=== PATIENT | female | born 1945 | race Caucasian/White ===

== ENCOUNTER → 2017-02-04 | Outpatient (CLI) | payer OTHER ==
[2017-02-04 08:40] LABS: Basophils # (auto) 0 uL; Basophils % (auto) 0.2 % (0.0-2.0); CONDITION Y; Eosinophils # (auto) 0.1 uL; Eosinophils % (auto) 1.5 % (0.0-7.0); Hematocrit 42.9 % (36.0-46.0); Hemoglobin 14.2 g/dL (12.2-16.2); Lymphocytes # (auto) 2.2 uL; Lymphocytes % (auto) 30.3 % (10.0-50.0); Mean Corpuscular Hgb Conc. 33.2 g/dL (32.0-36.0); Mean Corpuscular Volume 99.4 fL (80.0-100.0); Mean Platelet Volume 8.5 fL (7.4-10.4); Monocytes # (auto) 0.7 uL; Monocytes % (auto) 9.2 % (0.0-12.0); Neutrophils # (auto) 4.2 uL; Neutrophils % (auto) 58.8 % (37.0-80.0); Platelet Count (auto) 335 10^3/uL (140-450); Red Cell Distribution Width 13.7 % (11.6-16.0); White Blood Cell 7.1 10^3/uL (4.4-10.8)
[2017-02-04 08:46] LABS: Urine Bilirubin Negative (Negative); Urine Blood Negative /uL (Negative); Urine Color Yellow (Yellow); Urine Glucose Normal (Normal); Urine Ketone Negative (Negative); Urine Mucus FEW (None Seen); Urine Nitrite Negative (Negative); Urine RBC 4 /hpf (0 - 4); Urine Squamous Epithelial Cell FEW /hpf (<5); Urine Urobilinogen Normal (Negative); Urine pH 5.5 (5.0-8.0)
[2017-02-04 09:05] LABS: BUN/Creatinine Ratio 14.9; Bilirubin, Total 0.5 mg/dL (0.2-1.0); Calcium 9.4 mg/dL (8.5-10.1); Potassium 4.5 mmol/L (3.5-5.1); Total Protein 7.3 g/dL (6.4-8.2)
== END | disposition home or self-care (01) ==
LOC: LAB 08:25
PROVIDERS: ATTEND Internal Medicine
DX: Z00.00 Encounter for general adult medical examination without abnormal findings (principal); I10 Essential (primary) hypertension; E78.2 Mixed hyperlipidemia; E55.9 Vitamin D deficiency, unspecified
CPT/HCPCS: 36415; 80053; 80061; 81001; 82306; 84443; 85025

== ENCOUNTER → 2017-05-22 | Outpatient (CLI) | payer OTHER | END | disposition home or self-care (01) | LOC: LAB 10:44 | PROVIDERS: ATTEND Psychiatry & Neurology Neurology | DX: M54.2 Cervicalgia (principal); M54.5 Low back pain | CPT/HCPCS: 80307 ==

== ENCOUNTER → 2017-07-30 | Outpatient (CLI) | payer OTHER | END | disposition home or self-care (01) | LOC: LAB 10:08 | PROVIDERS: ATTEND Internal Medicine Gastroenterology | DX: Z86.19 Personal history of other infectious and parasitic diseases (principal) | CPT/HCPCS: 87522 ==

== ENCOUNTER → 2017-09-20 | Outpatient (CLI) | payer OTHER ==
[2017-09-20 09:44] LABS: Basophils # (auto) 0 uL; Basophils % (auto) 0.7 % (0.0-2.0); Eosinophils # (auto) 0.2 uL; Eosinophils % (auto) 2.6 % (0.0-7.0); Hematocrit 43.9 % (36.0-46.0); Hemoglobin 14.7 g/dL (12.2-16.2); Lymphocytes # (auto) 2.3 uL; Lymphocytes % (auto) 32.8 % (10.0-50.0); Mean Corpuscular Hgb Conc. 33.4 g/dL (32.0-36.0); Mean Corpuscular Volume 98.8 fL (80.0-100.0); Monocytes % (auto) 14.5 % (0.0-12.0); Neutrophils # (auto) 3.5 uL; Neutrophils % (auto) 49.4 % (37.0-80.0); Nucleated Red Blood Cells % 0.1 %; Platelet Count (auto) 353 10^3/uL (140-450); Red Blood Cells 4.45 10^6/uL (4.0-5.20); Red Cell Distribution Width 13.4 % (11.8-14.3)
[2017-09-20 10:09] LABS: Folate (Folic Acid) 19.29 ng/mL (5.38-24)
[2017-09-20 10:11] LABS: Urine Bacteria NONE SEEN /hpf (None Seen); Urine Blood Negative /uL (Negative); Urine Mucus FEW (None Seen); Urine Specific Gravity 1.021 (1.001-1.035); Urine WBC 1 /hpf (0 - 5)
[2017-09-20 10:16] LABS: Albumin 4.1 g/dL (3.4-5.0); BUN/Creatinine Ratio 20.3; Bilirubin, Total 0.5 mg/dL (0.2-1.0); Calcium 9.4 mg/dL (8.5-10.1); Potassium 4.2 mmol/L (3.5-5.1)
== END | disposition home or self-care (01) ==
LOC: LAB 08:22
PROVIDERS: ATTEND Nurse Practitioner
DX: M06.9 Rheumatoid arthritis, unspecified (principal); E78.5 Hyperlipidemia, unspecified
CPT/HCPCS: 36415; 80053; 80061; 81001; 82306; 82607; 82746; 84443; 85025

== ENCOUNTER → 2018-06-23 | Outpatient (CLI) | payer OTHER ==
[2018-06-23 12:27] LABS: Basophils # (auto) 0.1 uL; Basophils % (auto) 0.6 % (0.0-2.0); Eosinophils # (auto) 0.1 uL; Eosinophils % (auto) 1.4 % (0.0-7.0); Hematocrit 44.4 % (36.0-46.0); Hemoglobin 14.1 g/dL (12.2-16.2); Lymphocytes # (auto) 2.1 uL; Lymphocytes % (auto) 19.7 % (10.0-50.0); Mean Corpuscular Hemoglobin 30.8 pg (28.0-32.0); Mean Corpuscular Hgb Conc. 31.8 g/dL (32.0-36.0); Mean Corpuscular Volume 96.9 fL (80.0-100.0); Monocytes # (auto) 1.2 uL; Monocytes % (auto) 11.4 % (0.0-12.0); Neutrophils # (auto) 7.1 uL; Neutrophils % (auto) 66.9 % (37.0-80.0); Platelet Count (auto) 448 10^3/uL (140-450); Red Blood Cells 4.58 10^6/uL (4.0-5.20); Red Cell Distribution Width 14.1 % (11.8-14.3); White Blood Cell 10.6 10^3/uL (4.4-10.8)
[2018-06-23 12:50] LABS: Urine Bacteria NONE SEEN /hpf (None Seen); Urine Blood Negative /uL (Negative); Urine Specific Gravity 1.024 (1.001-1.035); Urine WBC 13 /hpf (0 - 5)
[2018-06-23 13:16] LABS: Potassium 3.5 mmol/L (3.5-5.1)
[2018-06-23 13:27] LABS: Hepatitis B Surface Antibody Negative
[2018-06-23 13:33] LABS: BUN/Creatinine Ratio 14.5; Bilirubin, Total 0.5 mg/dL (0.2-1.0); CRP High Sensitivity 0.11 mg/dL (< 0.3); Calcium 9.3 mg/dL (8.5-10.1); Total Protein 8.1 g/dL (6.4-8.2)
[2018-06-23 13:37] LABS: Protein, Urine 23.4 mg/dL (0.0-11.9)
[2018-06-23 14:06] LABS: Hepatitis A Total Antibody Positive
[2018-06-23 14:17] LABS: Hepatitis B Surface Antigen Negative (Negative)
[2018-06-23 14:19] LABS: Hepatitis B Core Total AB Positive
[2018-06-23 14:20] LABS: Hepatitis C Antibody Positive (Negative)
== END | disposition home or self-care (01) ==
LOC: LAB 09:48
PROVIDERS: ATTEND Internal Medicine
DX: Z11.59 Encounter for screening for other viral diseases (principal); I10 Essential (primary) hypertension; D64.9 Anemia, unspecified; E55.9 Vitamin D deficiency, unspecified; M32.10 Systemic lupus erythematosus, organ or system involvement unspecified; M45.0 Ankylosing spondylitis of multiple sites in spine; M35.09 Sjogren syndrome with other organ involvement; Z72.89 Other problems related to lifestyle; Z79.899 Other long term (current) drug therapy
CPT/HCPCS: 36415; 80053; 81001; 82306; 82570; 84156; 85025; 85652; 86141; 86200; 86235; 86704; 86706; 86708; 86803; 86812; 87340; 87517

== ENCOUNTER → 2018-08-14 | Outpatient (CLI) | payer OTHER ==
[2018-08-14 12:07] LABS: Basophils # (auto) 0.1 uL; Basophils % (auto) 0.8 % (0.0-2.0); Eosinophils # (auto) 0.2 uL; Eosinophils % (auto) 2.9 % (0.0-7.0); Hematocrit 41.4 % (36.0-46.0); Hemoglobin 13.9 g/dL (12.2-16.2); Lymphocytes # (auto) 2.3 uL; Lymphocytes % (auto) 35.1 % (10.0-50.0); Mean Corpuscular Hemoglobin 32.8 pg (28.0-32.0); Mean Corpuscular Hgb Conc. 33.5 g/dL (32.0-36.0); Mean Corpuscular Volume 97.8 fL (80.0-100.0); Monocytes # (auto) 0.9 uL; Monocytes % (auto) 13.8 % (0.0-12.0); Neutrophils # (auto) 3.1 uL; Neutrophils % (auto) 47.4 % (37.0-80.0); Nucleated Red Blood Cells % 0.1 %; Platelet Count (auto) 330 10^3/uL (140-450); Red Blood Cells 4.23 10^6/uL (4.0-5.20); Red Cell Distribution Width 14.6 % (11.8-14.3); White Blood Cell 6.5 10^3/uL (4.4-10.8)
== END | disposition home or self-care (01) ==
LOC: LAB 11:23
PROVIDERS: ATTEND Internal Medicine
DX: M06.9 Rheumatoid arthritis, unspecified (principal); B19.20 Unspecified viral hepatitis C without hepatic coma; Z92.89 Personal history of other medical treatment
CPT/HCPCS: 36415; 85025; 86431; 87522

== ENCOUNTER 2018-10-27 12:39 | Emergency (ER) | payer OTHER, MEDICAID ==
[~2018-10-27] VITALS: Ht 154.9 cm; Wt 59.0 kg
[2018-10-27 15:40] VITALS: BP 134/74
== END 2018-10-27 15:46 | disposition home or self-care (01) ==
LOC: ER 12:39
DX: S16.1XXA Strain of muscle, fascia and tendon at neck level, initial encounter (principal); S80.01XA Contusion of right knee, initial encounter; S09.90XA Unspecified injury of head, initial encounter; M06.9 Rheumatoid arthritis, unspecified; Z90.49 Acquired absence of other specified parts of digestive tract; Z90.710 Acquired absence of both cervix and uterus; Z90.89 Acquired absence of other organs; Z88.2 Allergy status to sulfonamides; W01.0XXA Fall on same level from slipping, tripping and stumbling without subsequent striking against object, initial encounter; Y93.89 Activity, other specified; Y99.8 Other external cause status; Y92.238 Other place in hospital as the place of occurrence of the external cause
CPT/HCPCS: 70450; 72125; 72192; 73700

== ENCOUNTER → 2018-11-11 | Outpatient (CLI) | payer OTHER, MEDICAID ==
[2018-11-11 10:36] LABS: Alcohol, Urine < 3.0 mg/dL (0-5); Amphetamine Screen, Urine NEGATIVE (NEGATIVE); Barbiturate Scree,Urine NEGATIVE (NEGATIVE); Benzodiazephine Screen, Urine POSITIVE (NEGATIVE); Cannabinoid Screen, Urine NEGATIVE (NEGATIVE); Cocaine Screen, Urine NEGATIVE (NEGATIVE); Opiate Scree,Urine POSITIVE (NEGATIVE); Phencyclidine Screen, Urine NEGATIVE (NEGATIVE)
== END | disposition home or self-care (01) ==
LOC: LAB 09:39
PROVIDERS: ATTEND Psychiatry & Neurology Neurology
DX: F41.9 Anxiety disorder, unspecified (principal); M54.5 Low back pain; M54.2 Cervicalgia
CPT/HCPCS: 80307

== ENCOUNTER → 2018-11-24 | Outpatient (CLI) | payer OTHER, MEDICAID ==
[2018-11-24 11:06] LABS: Basophils # (auto) 0 uL; Basophils % (auto) 0.5 % (0.0-2.0); Eosinophils # (auto) 0.1 uL; Eosinophils % (auto) 1.8 % (0.0-7.0); Hematocrit 38.2 % (36.0-46.0); Hemoglobin 12.7 g/dL (12.2-16.2); Lymphocytes # (auto) 2.1 uL; Lymphocytes % (auto) 33.8 % (10.0-50.0); Mean Corpuscular Hemoglobin 32.4 pg (28.0-32.0); Mean Corpuscular Hgb Conc. 33.1 g/dL (32.0-36.0); Mean Corpuscular Volume 97.7 fL (80.0-100.0); Monocytes # (auto) 0.6 uL; Monocytes % (auto) 9.2 % (0.0-12.0); Neutrophils # (auto) 3.4 uL; Neutrophils % (auto) 54.7 % (37.0-80.0); Nucleated Red Blood Cells % 0.1 %; Platelet Count (auto) 292 10^3/uL (140-450); Red Blood Cells 3.91 10^6/uL (4.0-5.20); White Blood Cell 6.2 10^3/uL (4.4-10.8)
[2018-11-24 11:07] LABS: Basophils # (auto) 0.1 uL; Basophils % (auto) 0.8 % (0.0-2.0); Eosinophils # (auto) 0.1 uL; Eosinophils % (auto) 1.7 % (0.0-7.0); Hematocrit 38.9 % (36.0-46.0); Hemoglobin 12.8 g/dL (12.2-16.2); Mean Corpuscular Hemoglobin 32.2 pg (28.0-32.0); Mean Corpuscular Hgb Conc. 32.8 g/dL (32.0-36.0); Mean Corpuscular Volume 98.3 fL (80.0-100.0); Monocytes # (auto) 0.6 uL; Monocytes % (auto) 9.8 % (0.0-12.0); Neutrophils # (auto) 3.4 uL; Neutrophils % (auto) 54.7 % (37.0-80.0); Nucleated Red Blood Cells % 0.1 %; Platelet Count (auto) 301 10^3/uL (140-450); Red Blood Cells 3.96 10^6/uL (4.0-5.20); Red Cell Distribution Width 13.2 % (11.8-14.3); White Blood Cell 6.2 10^3/uL (4.4-10.8)
[2018-11-24 11:22] LABS: INR 0.98 (0.9-1.15); Partial Thromboplastin Time 25.8 sec (23.78-33.04); Prothrombin Time 10.5 sec (9.27-12.13)
[2018-11-24 11:28] LABS: Urine Bacteria NONE SEEN /hpf (None Seen); Urine Blood Negative /uL (Negative); Urine Specific Gravity 1.015 (1.001-1.035); Urine Specific Gravity 1.016 (1.001-1.035); Urine WBC 3 /hpf (0 - 5); Urine WBC 5 /hpf (0 - 5)
[2018-11-24 11:39] LABS: Potassium 3.9 mmol/L (3.5-5.1)
[2018-11-24 11:41] LABS: Potassium 3.9 mmol/L (3.5-5.1)
[2018-11-24 11:46] LABS: Folate (Folic Acid) > 24.00 ng/mL (5.38-24)
[2018-11-24 11:47] LABS: Hepatitis B Surface Antibody Negative
[2018-11-24 11:54] LABS: Albumin 3.6 g/dL (3.4-5.0); BUN/Creatinine Ratio 8.3; Bilirubin, Total 0.4 mg/dL (0.2-1.0); Calcium 8.9 mg/dL (8.5-10.1); Total Protein 6.6 g/dL (6.4-8.2)
[2018-11-24 12:03] LABS: Albumin 3.6 g/dL (3.4-5.0); BUN/Creatinine Ratio 8.6; Bilirubin, Total 0.4 mg/dL (0.2-1.0); Calcium 9.1 mg/dL (8.5-10.1); Total Protein 6.6 g/dL (6.4-8.2); Uric Acid 4.5 mg/dL (2.6-6.0)
[2018-11-24 12:25] LABS: Hepatitis A Total Antibody Positive
[2018-11-24 13:11] LABS: Hepatitis B Surface Antigen Negative (Negative)
[2018-11-24 13:16] LABS: Hepatitis B Core Total AB Positive; Hepatitis C Antibody Positive (Negative)
== END | disposition home or self-care (01) ==
LOC: LAB 09:23
PROVIDERS: ATTEND Nurse Practitioner
DX: Z01.818 Encounter for other preprocedural examination (principal)
CPT/HCPCS: 36415; 80053; 80061; 81001; 82306; 82607; 82746; 83036; 84443; 84550; 85025; 85610; 85730; 86704; 86706; 86708; 86803; 87340

== ENCOUNTER → 2018-12-19 | Outpatient (CLI) | payer OTHER, MEDICAID | END | disposition home or self-care (01) | LOC: LAB 11:06 | PROVIDERS: ATTEND Internal Medicine Gastroenterology | DX: Z86.19 Personal history of other infectious and parasitic diseases (principal) | CPT/HCPCS: 87522 ==

== ENCOUNTER → 2019-01-29 | Outpatient (CLI) | payer OTHER, MEDICAID | END | disposition home or self-care (01) | LOC: LAB 11:24 | PROVIDERS: ATTEND Nurse Practitioner | DX: Z12.11 Encounter for screening for malignant neoplasm of colon (principal) | CPT/HCPCS: 82270 ==

== ENCOUNTER → 2019-04-23 | Outpatient (CLI) | payer OTHER, MEDICAID ==
[2019-04-23 11:44] LABS: Basophils # (auto) 0.1 uL; Basophils % (auto) 1.3 % (0.0-2.0); Eosinophils # (auto) 0.2 uL; Eosinophils % (auto) 3.7 % (0.0-7.0); Hematocrit 37.3 % (36.0-46.0); Hemoglobin 12.3 g/dL (12.2-16.2); Lymphocytes # (auto) 2.5 uL; Lymphocytes % (auto) 41.3 % (10.0-50.0); Mean Corpuscular Hemoglobin 32.2 pg (28.0-32.0); Mean Corpuscular Hgb Conc. 33.1 g/dL (32.0-36.0); Mean Corpuscular Volume 97.4 fL (80.0-100.0); Monocytes # (auto) 0.8 uL; Monocytes % (auto) 13.8 % (0.0-12.0); Neutrophils # (auto) 2.4 uL; Neutrophils % (auto) 39.9 % (37.0-80.0); Nucleated Red Blood Cells % 0.1 %; Platelet Count (auto) 275 10^3/uL (140-450); Red Blood Cells 3.83 10^6/uL (4.0-5.20); Red Cell Distribution Width 14.5 % (11.8-14.3)
[2019-04-23 11:55] LABS: Urine Blood Negative /uL (Negative); Urine Specific Gravity 1.023 (1.001-1.035)
[2019-04-23 12:09] LABS: INR 0.95 (0.9-1.15); Partial Thromboplastin Time 26.4 sec (23.64-32.05)
[2019-04-23 12:17] LABS: Potassium 4.6 mmol/L (3.5-5.1)
[2019-04-23 12:37] LABS: Albumin 3.4 g/dL (3.4-5.0); BUN/Creatinine Ratio 13.9; Calcium 8.9 mg/dL (8.5-10.1)
[2019-04-23 12:39] LABS: Bilirubin, Total 0.3 mg/dL (0.2-1.0); Total Protein 6.3 g/dL (6.4-8.2)
== END | disposition home or self-care (01) ==
LOC: LAB 11:08
PROVIDERS: ATTEND Nurse Practitioner
DX: Z01.818 Encounter for other preprocedural examination (principal)
CPT/HCPCS: 36415; 80053; 81003; 85025; 85610; 85730

== ENCOUNTER 2019-05-06 11:55 | Day surgery (SDC) | payer OTHER, MEDICAID ==
[2019-05-04 12:21] LABS: Basophils # (auto) 0.1 uL; Basophils % (auto) 0.8 % (0.0-2.0); Eosinophils # (auto) 0.3 uL; Eosinophils % (auto) 4.3 % (0.0-7.0); Hematocrit 41.3 % (36.0-46.0); Hemoglobin 13.6 g/dL (12.2-16.2); INR 1.01 (0.9-1.15); Lymphocytes # (auto) 2.6 uL; Lymphocytes % (auto) 42.3 % (10.0-50.0); Mean Corpuscular Hemoglobin 32.2 pg (28.0-32.0); Mean Corpuscular Hgb Conc. 32.9 g/dL (32.0-36.0); Mean Corpuscular Volume 97.9 fL (80.0-100.0); Monocytes # (auto) 0.5 uL; Monocytes % (auto) 8.8 % (0.0-12.0); Neutrophils # (auto) 2.6 uL; Neutrophils % (auto) 43.8 % (37.0-80.0); Nucleated Red Blood Cells % 0.1 %; Partial Thromboplastin Time 25.4 sec (23.64-32.05); Platelet Count (auto) 287 10^3/uL (140-450); Red Blood Cells 4.22 10^6/uL (4.0-5.20); Red Cell Distribution Width 14.3 % (11.8-14.3)
[2019-05-04 12:28] LABS: Urine Bacteria NONE SEEN /hpf (None Seen); Urine Blood Negative /uL (Negative); Urine Hyaline Cast FEW /lpf (0 - 2); Urine Mucus FEW (None Seen); Urine WBC 14 /hpf (0 - 5)
[2019-05-04 12:41] LABS: Albumin 3.9 g/dL (3.4-5.0); Calcium 9.3 mg/dL (8.5-10.1); Potassium 4.8 mmol/L (3.5-5.1)
[2019-05-04 12:43] LABS: BUN/Creatinine Ratio 13.4
[2019-05-04 12:45] LABS: Bilirubin, Total 0.6 mg/dL (0.2-1.0); Total Protein 6.8 g/dL (6.4-8.2)
[~2019-05-06] VITALS: Ht 157.5 cm; Wt 54.4 kg
[~2019-05-06 11:55] MED LIST: ALPR0.5T PO; HYDR-531 PO; HYDR200T36 PO; LATA0.0015 EACHEYE; LEVO50TA7 PO; TIMO0.5S66 EACHEYE; TRAZ100T2 PO
[2019-05-06] MEDS ORDERED: BUPIVACAINE 0.5% P/F INJ 10 ML VIAL ONE (12:33)
[2019-05-06] MEDS ORDERED: LIDOCAINE 1% HCL (LOCAL ANESTH.) INJ 20ML MDV ONE (12:33)
[2019-05-06] MEDS ORDERED: MIDAZOLAM HCL 1MG/1ML-2 ML VIAL ONE (13:09)
[2019-05-06] MEDS ORDERED: ONDANSETRON HCL 4 MG/2 ML VIAL ONE (13:09)
[2019-05-06] MEDS ORDERED: PROPOFOL 10 MG/ML 20 ML IV ONE (13:09)
[2019-05-06] MEDS ORDERED: fentaNYL CITRATE 100 MCG/2 ML VL ONE (13:09)
[2019-05-06] MEDS ORDERED: SODIUM CHLORIDE LOCK 10 ML ONE (13:09)
[2019-05-06] MEDS ORDERED: ceFAZolin 1GM/50ML 50 ML IV ONE (13:13)
[2019-05-06] MEDS ORDERED: METOCLOPRAMIDE HCL 5MG/ml INJ 2ml VIAL IV PRN (13:15)
[2019-05-06] MEDS ORDERED: KETOROLAC TROMETH 30 MG/ML 1ML VIAL IV ONE (13:15)
[2019-05-06] MEDS ORDERED: HYDROmorphone HCL 2 MG/ML VL IV PRN (13:15)
[2019-05-06] MEDS ORDERED: fentaNYL CITRATE 100 MCG/2 ML VL IV PRN (13:15)
[2019-05-06 15:01] VITALS: BP 100/52
== END 2019-05-06 15:31 | disposition home or self-care (01) ==
LOC: SUR 11:55
PROVIDERS: ATTEND Podiatrist
DX: M67.471 Ganglion, right ankle and foot (principal); M06.9 Rheumatoid arthritis, unspecified; B19.20 Unspecified viral hepatitis C without hepatic coma; E03.9 Hypothyroidism, unspecified; F32.9 Major depressive disorder, single episode, unspecified; N18.2 Chronic kidney disease, stage 2 (mild); Z78.0 Asymptomatic menopausal state; Z98.890 Other specified postprocedural states; Z90.49 Acquired absence of other specified parts of digestive tract; Z88.8 Allergy status to other drugs, medicaments and biological substances; Z88.2 Allergy status to sulfonamides; Z88.1 Allergy status to other antibiotic agents; Z88.5 Allergy status to narcotic agent
CPT/HCPCS: 28090; 36415; 80053; 81001; 85025; 85610; 85730; 88305; 88312; 88313; 88342; J0690; J2001; J2250; J2405; J2704; J3010; J3490

== ENCOUNTER → 2019-05-14 | Outpatient (CLI) | payer OTHER, MEDICAID ==
[2019-05-14 10:15] LABS: Amphetamine Screen, Urine NEGATIVE (NEGATIVE); Barbiturate Scree,Urine NEGATIVE (NEGATIVE); Benzodiazephine Screen, Urine POSITIVE (NEGATIVE); Cannabinoid Screen, Urine POSITIVE (NEGATIVE); Cocaine Screen, Urine NEGATIVE (NEGATIVE); Phencyclidine Screen, Urine NEGATIVE (NEGATIVE)
[2019-05-14 10:22] LABS: Opiate Scree,Urine POSITIVE (NEGATIVE)
== END | disposition home or self-care (01) ==
LOC: LAB 09:40
PROVIDERS: ATTEND Psychiatry & Neurology Neurology
DX: M54.5 Low back pain (principal)
CPT/HCPCS: 80307

== ENCOUNTER → 2019-09-04 | Outpatient (CLI) | payer OTHER, MEDICAID ==
[~2019-09-04] MED LIST changes: -TRAZ100T2 PO; +TRAZ100T3 PO
[2019-09-04 10:37] LABS: Basophils # (auto) 0 uL; Basophils % (auto) 0.3 % (0.0-2.0); Eosinophils # (auto) 0 uL; Eosinophils % (auto) 0.2 % (0.0-7.0); Hematocrit 42.8 % (36.0-46.0); Hemoglobin 14.6 g/dL (12.2-16.2); Lymphocytes # (auto) 1.8 uL; Lymphocytes % (auto) 18.6 % (10.0-50.0); Mean Corpuscular Hemoglobin 33.2 pg (28.0-32.0); Mean Corpuscular Volume 97.6 fL (80.0-100.0); Monocytes # (auto) 1.1 uL; Neutrophils # (auto) 6.7 uL; Neutrophils % (auto) 69.9 % (37.0-80.0); Platelet Count (auto) 313 10^3/uL (140-450); Red Blood Cells 4.39 10^6/uL (4.0-5.20); Red Cell Distribution Width 13.9 % (11.8-14.3); White Blood Cell 9.6 10^3/uL (4.4-10.8)
[2019-09-04 10:44] LABS: Urine Bacteria NONE SEEN /hpf (None Seen); Urine Blood Negative /uL (Negative); Urine Mucus MODERATE (None Seen); Urine Specific Gravity 1.027 (1.001-1.035); Urine WBC 6 /hpf (0 - 5)
[2019-09-04 10:59] LABS: Albumin 3.8 g/dL (3.4-5.0); Calcium 9.7 mg/dL (8.5-10.1); Potassium 4.4 mmol/L (3.5-5.1)
[2019-09-04 11:05] LABS: BUN/Creatinine Ratio 19.2; Bilirubin, Total 0.6 mg/dL (0.2-1.0); Total Protein 7.6 g/dL (6.4-8.2)
[2019-09-04 11:09] LABS: Folate (Folic Acid) > 24.00 ng/mL (5.38-24)
== END | disposition home or self-care (01) ==
LOC: LAB 10:03
PROVIDERS: ATTEND Nurse Practitioner
DX: E78.5 Hyperlipidemia, unspecified (principal)
CPT/HCPCS: 36415; 80053; 80061; 81001; 82607; 82746; 84443; 85025; 85652

== ENCOUNTER → 2019-10-08 | Outpatient (CLI) | payer OTHER, MEDICAID ==
[2019-10-08 12:17] LABS: Alcohol, Urine < 3.0 mg/dL (0-5); Amphetamine Screen, Urine NEGATIVE (NEGATIVE); Barbiturate Scree,Urine NEGATIVE (NEGATIVE); Benzodiazephine Screen, Urine POSITIVE (NEGATIVE); Cannabinoid Screen, Urine POSITIVE (NEGATIVE); Cocaine Screen, Urine NEGATIVE (NEGATIVE); Opiate Scree,Urine POSITIVE (NEGATIVE); Phencyclidine Screen, Urine NEGATIVE (NEGATIVE)
== END | disposition home or self-care (01) ==
LOC: LAB 11:30
PROVIDERS: ATTEND Psychiatry & Neurology Neurology
DX: G89.4 Chronic pain syndrome (principal)
CPT/HCPCS: 80307

== ENCOUNTER → 2019-11-14 | Emergency (ER) | payer OTHER, MEDICAID ==
[~2019-11-14] VITALS: Ht 157.5 cm; Wt 50.3 kg
[~2019-11-14] MED LIST changes: +KETOROLAC TROMETH 15 mg/ml 1ML VL IV ONE; +KETOROLAC TROMETH 30 MG/ML 1ML VIAL IV ONE; -LATA0.0015 EACHEYE; +LATA0.0019 EACHEYE; +METOCLOPRAMIDE HCL 5MG/ml INJ 2ml VIAL IV ONE; +SODIUM CHLORIDE 0.9% 1,000 ML IV ONE
[2019-11-14 10:29] VITALS: BP 101/38
== END | disposition home or self-care (01) ==
LOC: EDUNIT# 09:54 → ER 10:11 → EDBD 10:11
DX: S70.02XA Contusion of left hip, initial encounter (principal); S60.212A Contusion of left wrist, initial encounter; S00.83XA Contusion of other part of head, initial encounter; G89.29 Other chronic pain; M54.5 Low back pain; M06.9 Rheumatoid arthritis, unspecified; W01.0XXA Fall on same level from slipping, tripping and stumbling without subsequent striking against object, initial encounter; Y93.89 Activity, other specified; Y92.89 Other specified places as the place of occurrence of the external cause; Y99.8 Other external cause status
CPT/HCPCS: 73502; 96374; 96375; 99284; J1885; J2765; J7030

== ENCOUNTER → 2020-01-25 | Outpatient (CLI) | payer OTHER, MEDICAID ==
[~2020-01-25] MED LIST changes: -KETOROLAC TROMETH 15 mg/ml 1ML VL IV ONE; -KETOROLAC TROMETH 30 MG/ML 1ML VIAL IV ONE; -METOCLOPRAMIDE HCL 5MG/ml INJ 2ml VIAL IV ONE; -SODIUM CHLORIDE 0.9% 1,000 ML IV ONE
[2020-01-25 11:35] LABS: Basophils # (auto) 0 10 ^3/uL (0-0.2); Basophils % (auto) 0.7 % (0.0-2.0); Eosinophils # (auto) 0.1 10 ^3/uL (0-0.8); Eosinophils % (auto) 1.9 % (0.0-7.0); Hematocrit 40.2 % (36.0-46.0); Hemoglobin 13.6 g/dL (12.2-16.2); Lymphocytes # (auto) 2.7 10 ^3/uL (0.4-5.4); Lymphocytes % (auto) 46.3 % (10.0-50.0); Mean Corpuscular Hemoglobin 33.7 pg (28.0-32.0); Mean Corpuscular Hgb Conc. 33.9 g/dL (32.0-36.0); Mean Corpuscular Volume 99.6 fL (80.0-100.0); Monocytes # (auto) 0.6 10 ^3/uL (0-1.3); Monocytes % (auto) 10.3 % (0.0-12.0); Neutrophils # (auto) 2.4 10 ^3/uL (1.6-8.6); Neutrophils % (auto) 40.8 % (37.0-80.0); Platelet Count (auto) 265 10^3/uL (140-450); Red Blood Cells 4.03 10^6/uL (4.0-5.20); Red Cell Distribution Width 13.4 % (11.8-14.3); White Blood Cell 5.8 10^3/uL (4.4-10.8)
[2020-01-25 13:16] LABS: Hepatitis B Surface Antibody Negative
[2020-01-25 14:48] LABS: Hepatitis B Surface Antigen Negative (Negative)
[2020-01-25 14:50] LABS: Hepatitis B Core Total AB Positive
[2020-01-25 16:04] LABS: Albumin 3.8 g/dL (3.4-5.0); Calcium 8.7 mg/dL (8.5-10.1); Potassium 4.1 mmol/L (3.5-5.1)
[2020-01-25 16:07] LABS: BUN/Creatinine Ratio 15.6
[2020-01-25 16:12] LABS: Bilirubin, Total 0.4 mg/dL (0.2-1.0); Total Protein 7.1 g/dL (6.4-8.2)
== END | disposition home or self-care (01) ==
LOC: LAB 10:53
PROVIDERS: ATTEND Internal Medicine Rheumatology
DX: Z11.1 Encounter for screening for respiratory tuberculosis (principal); M05.79 Rheumatoid arthritis with rheumatoid factor of multiple sites without organ or systems involvement; R94.5 Abnormal results of liver function studies
CPT/HCPCS: 36415; 80053; 85025; 86704; 86706; 87340

== ENCOUNTER → 2020-02-04 | Outpatient (CLI) | payer OTHER, MEDICAID ==
[2020-02-04 12:49] LABS: Alcohol, Urine < 3.0 mg/dL (0-10); Amphetamine Screen, Urine NEGATIVE (NEGATIVE); Barbiturate Scree,Urine NEGATIVE (NEGATIVE); Benzodiazephine Screen, Urine POSITIVE (NEGATIVE); Cannabinoid Screen, Urine POSITIVE (NEGATIVE); Cocaine Screen, Urine NEGATIVE (NEGATIVE)
[2020-02-04 12:57] LABS: Opiate Scree,Urine POSITIVE (NEGATIVE); Phencyclidine Screen, Urine NEGATIVE (NEGATIVE)
== END | disposition home or self-care (01) ==
LOC: LAB 11:59
PROVIDERS: ATTEND Psychiatry & Neurology Neurology
DX: M54.5 Low back pain (principal)
CPT/HCPCS: 80307

== ENCOUNTER 2020-04-06 07:25 | Day surgery (SDC) | payer OTHER, MEDICAID ==
[2020-04-01 11:23] LABS: Basophils # (auto) 0 10 ^3/uL (0-0.2); Basophils % (auto) 0.6 % (0.0-2.0); Eosinophils # (auto) 0.1 10 ^3/uL (0-0.8); Eosinophils % (auto) 2.1 % (0.0-7.0); Hematocrit 39.3 % (36.0-46.0); Hemoglobin 12.8 g/dL (12.2-16.2); Lymphocytes # (auto) 2.9 10 ^3/uL (0.4-5.4); Lymphocytes % (auto) 46.2 % (10.0-50.0); Mean Corpuscular Hemoglobin 32.1 pg (28.0-32.0); Mean Corpuscular Hgb Conc. 32.5 g/dL (32.0-36.0); Mean Corpuscular Volume 98.7 fL (80.0-100.0); Monocytes # (auto) 0.5 10 ^3/uL (0-1.3); Monocytes % (auto) 8.1 % (0.0-12.0); Neutrophils # (auto) 2.7 10 ^3/uL (1.6-8.6); Nucleated Red Blood Cells % 0.1 %; Platelet Count (auto) 253 10^3/uL (140-450); Red Blood Cells 3.98 10^6/uL (4.0-5.20); Red Cell Distribution Width 13.3 % (11.8-14.3); White Blood Cell 6.2 10^3/uL (4.4-10.8)
[2020-04-01 11:43] LABS: INR 1.04 (0.9-1.15); Partial Thromboplastin Time 26.2 sec (23.0-31.2)
[2020-04-01 11:47] LABS: Urine Bacteria NONE SEEN /hpf (None Seen); Urine Blood Negative /uL (Negative); Urine Mucus FEW (None Seen); Urine Specific Gravity 1.011 (1.001-1.035); Urine WBC 2 /hpf (0 - 5)
[2020-04-01 12:53] LABS: Albumin 3.6 g/dL (3.4-5.0); Bilirubin, Total 0.5 mg/dL (0.2-1.0); Calcium 8.8 mg/dL (8.5-10.1); Total Protein 6.6 g/dL (6.4-8.2)
[2020-04-01 13:34] LABS: Potassium 4.1 mmol/L (3.5-5.1)
[~2020-04-06] VITALS: Ht 154.9 cm; Wt 50.8 kg
[~2020-04-06 07:25] MED LIST changes: +DORZ2SOL17 RIGHTEYE; +FOLI1TAB6 PO; -HYDR200T36 PO; +METH2.5T PO; -TIMO0.5S66 EACHEYE
[2020-04-06] MEDS ORDERED: ceFAZolin 1GM/50ML 50 ML IV ONE (09:13)
[2020-04-06] MEDS ORDERED: LIDOCAINE 1% HCL (LOCAL ANESTH.) INJ 20ML MDV ONE (09:24)
[2020-04-06] MEDS ORDERED: BUPIVACAINE HCL 50 ML ONE (09:24)
[2020-04-06] MEDS ORDERED: MIDAZOLAM HCL 1MG/1ML-2 ML VIAL ONE (09:46)
[2020-04-06] MEDS ORDERED: GLYCOPYRROLATE 0.2 MG/ML 1ML VIAL ONE (09:47)
[2020-04-06] MEDS ORDERED: LIDOCAINE 2% (LOCAL ANESTH.) PF 5ml SDV ONE (09:47)
[2020-04-06] MEDS ORDERED: METOCLOPRAMIDE HCL 5MG/ml INJ 2ml VIAL ONE (09:47)
[2020-04-06] MEDS ORDERED: diphenhdrAMINE HCL 50 MG/1 ML VL ONE (09:47)
[2020-04-06] MEDS ORDERED: PROPOFOL 10 MG/ML 20 ML IV ONE (09:49)
[2020-04-06] MEDS ORDERED: LIDOCAINE HCL 2% TOP JELLY 5ML TOP ONE (09:57)
[2020-04-06] MEDS ORDERED: HYDROmorphone HCL 2 MG/ML VL IV PRN ×2 (10:15)
[2020-04-06] MEDS ORDERED: NALOXONE HCL 0.4 MG/ML VIAL IV PRN (10:15)
[2020-04-06] MEDS ORDERED: ONDANSETRON HCL 4 MG/2 ML VIAL IV PRN (10:15)
[2020-04-06] MEDS ORDERED: SODIUM CHLORIDE LOCK 10 ML ONE (10:17)
[2020-04-06] MEDS ORDERED: ePHEDrine SULFATE 50 MG/ML AMP ONE (10:17)
[2020-04-06 11:19] VITALS: BP 124/61
== END 2020-04-06 11:30 | disposition home or self-care (01) ==
LOC: SUR 07:25
PROVIDERS: ATTEND Podiatrist
DX: M20.42 Other hammer toe(s) (acquired), left foot (principal); E07.9 Disorder of thyroid, unspecified; H40.9 Unspecified glaucoma; F41.9 Anxiety disorder, unspecified; B19.10 Unspecified viral hepatitis B without hepatic coma; G89.29 Other chronic pain; Z79.899 Other long term (current) drug therapy; Z88.1 Allergy status to other antibiotic agents; Z88.5 Allergy status to narcotic agent; Z98.890 Other specified postprocedural states; Z86.19 Personal history of other infectious and parasitic diseases; Z11.59 Encounter for screening for other viral diseases
CPT/HCPCS: 26860; 36415; 80053; 81001; 85025; 85610; 85730; C1713; J0690; J1200; J2001; J2250; J2704; J2765; J3490; L3260; U0003

== ENCOUNTER → 2020-04-29 | Outpatient (CLI) | payer OTHER ==
[2020-04-29 10:59] LABS: Basophils # (auto) 0 10 ^3/uL (0-0.2); Basophils % (auto) 0.5 % (0.0-2.0); Eosinophils # (auto) 0.1 10 ^3/uL (0-0.8); Eosinophils % (auto) 1.6 % (0.0-7.0); Hematocrit 43.2 % (36.0-46.0); Lymphocytes # (auto) 2.2 10 ^3/uL (0.4-5.4); Lymphocytes % (auto) 34.2 % (10.0-50.0); Mean Corpuscular Hemoglobin 32.2 pg (28.0-32.0); Mean Corpuscular Hgb Conc. 32.3 g/dL (32.0-36.0); Mean Corpuscular Volume 99.6 fL (80.0-100.0); Monocytes # (auto) 0.8 10 ^3/uL (0-1.3); Neutrophils # (auto) 3.3 10 ^3/uL (1.6-8.6); Neutrophils % (auto) 51.7 % (37.0-80.0); Nucleated Red Blood Cells % 0.1 %; Platelet Count (auto) 363 10^3/uL (140-450); Red Blood Cells 4.34 10^6/uL (4.0-5.20); Red Cell Distribution Width 13.9 % (11.8-14.3); White Blood Cell 6.5 10^3/uL (4.4-10.8)
[2020-04-29 12:00] LABS: Albumin 3.7 g/dL (3.4-5.0); Calcium 9.5 mg/dL (8.5-10.1); Potassium 5.5 mmol/L (3.5-5.1)
[2020-04-29 12:05] LABS: Bilirubin, Total 0.4 mg/dL (0.2-1.0); Total Protein 7.1 g/dL (6.4-8.2)
== END | disposition home or self-care (01) ==
LOC: LAB 10:32
PROVIDERS: ATTEND Internal Medicine Rheumatology
DX: M05.79 Rheumatoid arthritis with rheumatoid factor of multiple sites without organ or systems involvement (principal)
CPT/HCPCS: 36415; 80053; 85025

== ENCOUNTER → 2020-05-17 | Outpatient (CLI) | payer OTHER, MEDICAID | END | disposition home or self-care (01) | LOC: LAB 11:44 | PROVIDERS: ATTEND Physician Assistant | DX: N39.0 Urinary tract infection, site not specified (principal) | CPT/HCPCS: 87086; 87088; 87186 ==

== ENCOUNTER → 2020-05-25 | Outpatient (CLI) | payer OTHER, MEDICAID ==
[2020-05-25 11:54] LABS: Amphetamine Screen, Urine NEGATIVE (NEGATIVE); Benzodiazephine Screen, Urine POSITIVE (NEGATIVE); Cannabinoid Screen, Urine NEGATIVE (NEGATIVE); Cocaine Screen, Urine NEGATIVE (NEGATIVE); Opiate Scree,Urine POSITIVE (NEGATIVE); Phencyclidine Screen, Urine NEGATIVE (NEGATIVE)
[2020-05-25 12:02] LABS: Barbiturate Scree,Urine NEGATIVE (NEGATIVE)
== END | disposition home or self-care (01) ==
LOC: LAB 11:17
PROVIDERS: ATTEND Psychiatry & Neurology Neurology
DX: M54.5 Low back pain (principal)
CPT/HCPCS: 80307